=== PATIENT | female | born 1960 | race Caucasian/White ===

== ENCOUNTER 2016-08-21 06:58 | Outpatient (CLI) ==
[2013-09-29 16:21] VITALS: BMI 26.6
[2016-08-21 07:17] LABS: BASOPHILS # (AUTO) 0.1 K/uL (0-0.2); BASOPHILS % (AUTO) 0.7 % (0.0-3.0); EOSINOPHILS # (AUTO) 0.2 K/ul (0.0-0.7); EOSINOPHILS % (AUTO) 1.7 % (0.0-7.0); HEMATOCRIT 45.1 % (37.0-47.0); HEMOGLOBIN 15.1 g/dl (12.0-16.0); IMMATURE GRANULOCYTE % (AUTO) 0.3 % (0.0-5.0); LYMPHOCYTES # (AUTO) 2.9 K/uL (0.60-3.4); LYMPHOCYTES % (AUTO) 28.4 (10.0-50.0); MEAN CORPUSCULAR HEMOGLOBIN 29.1 pg (27.0-31.0); MEAN CORPUSCULAR HGB CONC 33.5 (31.8-35.4); MEAN CORPUSCULAR VOLUME 86.9 fl (81.0-99.0); MONOCYTES # (AUTO) 0.7 K/uL (0.4-2.0); NEUTROPHILS # (AUTO) 6.4 K/ul (2.0-6.9); NEUTROPHILS % (AUTO) 61.9; PLATELET COUNT 364 10^3/uL (140-440); RED BLOOD COUNT 5.19 10^6/ul (4.20-5.40); WHITE BLOOD COUNT 10.36 K/ul (4.6-10.2)
[2016-08-21 08:10] LABS: ALBUMIN 3.8 g/dL (3.4-5.0); ALBUMIN/GLOBULIN RATIO 1.03; ANION GAP 14.2; BILIRUBIN,TOTAL 0.41 mg/dL (0.00-1.20); BUN/CREATININE RATIO 8.69; CALCIUM 9.4 mg/dL (8.2-10.2); CHOL/HDL RATIO 4.5 (4.5-5.5); CREATININE 0.92 mg/dL (0.60-1.30); POTASSIUM 4.2 mmol/L (3.5-5.10); TOTAL PROTEIN 7.5 g/dL (6.4-8.2)
--- NOTE | 2016-08-21 08:12 | DI ---
EXAM: CHEST FRONTAL AND LATERAL VIEWS HISTORY: Tobacco use. COMPARISON: 09/29/2013 FINDINGS: Heart size is normal. There is diffuse, chronic appearing interstitial accentuation. Bertha gs are hyperinflated and there is relative lucency of the lung zones suggesting emphysema. Scattere d pulmonary opacities appear grossly stable since prior study possibly postinflammatory in nature. No acute infiltrates, vascular congestion or pleural fluid. IMPRESSION: Findings which can be consistent with chronic obstructive pulmonary disease. Correlate clinically. No definite suspicious opacities identified radiographically.]
== END 2016-08-21 06:59 | disposition home or self-care (01) ==
LOC: LAB 06:58
PROVIDERS: ATTEND Nurse Practitioner Family
DX: Z00.00 Encounter for general adult medical examination without abnormal findings (principal); Z72.0 Tobacco use; F41.9 Anxiety disorder, unspecified
CPT/HCPCS: 36415; 80053; 80061; 84443; 85025

== ENCOUNTER 2016-09-05 07:10 | Outpatient (CLI) ==
[2013-09-29 16:21] VITALS: BMI 26.6
--- NOTE | 2016-09-05 08:13 | CT ---
EXAM: CT neck with contrast HISTORY: Nonspecific lymphadenitis, knot left ear COMPARISON: None TECHNIQUE: CT neck performed with intravenous contrast. Coronal and sagittal reformatted images ob tained. FINDINGS: Mastoid air cells clear. Paranasal sinuses clear. No acute abnormalities of the bones. Mild atherosclerosis. A radiopaque marker was placed in the region of clinical concern, over the le ft parotid gland. In this region, in the posterior aspect of the parotid gland, there is a 0.7 cm n odule that is favored to represent a lymph node. Small scattered additional parotid lymph nodes not ed bilaterally. Right parotid gland unremarkable. Submandibular glands appear normal. Globes and retrobulbar structures normal. Evaluation of the aerodigestive tract demonstrates no exophytic mass lesion or area of focal mass effect. Epiglottis appears normal. Tonsils and adenoids not enlarged . Prevertebral soft tissues appear normal. Thyroid appears normal. Calcified superior mediastinal lymph nodes, consistent with old granulomatous disease. No lymphadenopathy identified in the neck. IMPRESSION: 1. 0.7 cm nodule left parotid gland corresponds to the region of clinical concern. This is indeter minate, though probably represents a lymph node. Recommend correlation with ultrasound. 2. Mild to moderate centrilobular emphysema in the lung apices
== END 2016-09-05 07:11 | disposition home or self-care (01) ==
LOC: RAD 07:10
PROVIDERS: ATTEND Nurse Practitioner Family
DX: I88.9 Nonspecific lymphadenitis, unspecified (principal); Z72.0 Tobacco use

== ENCOUNTER 2016-11-21 11:42 | Outpatient (CLI) ==
[2013-09-29 16:21] VITALS: BMI 26.6
== END 2016-11-21 11:43 | disposition home or self-care (01) ==
LOC: LAB 11:42
PROVIDERS: ATTEND Nurse Practitioner Family
DX: J02.9 Acute pharyngitis, unspecified (principal)
CPT/HCPCS: 87651; 87880

== ENCOUNTER 2017-10-21 15:46 | Outpatient (CLI) ==
[2013-09-29 16:21] VITALS: BMI 26.6
== END 2017-10-21 15:47 | disposition home or self-care (01) ==
LOC: RHC-LAB 15:46
PROVIDERS: ATTEND Nurse Practitioner Family
DX: Z00.00 Encounter for general adult medical examination without abnormal findings (principal); Z72.0 Tobacco use; F32.9 Major depressive disorder, single episode, unspecified
CPT/HCPCS: 36415; 80053; 80061; 84443; 85025

== ENCOUNTER 2017-11-11 14:36 | Outpatient (CLI) ==
[2013-09-29 16:21] VITALS: BMI 26.6
== END 2017-11-11 14:37 | disposition home or self-care (01) ==
LOC: RHC-LAB 14:36
PROVIDERS: ATTEND Nurse Practitioner Family
DX: R31.9 Hematuria, unspecified (principal)
CPT/HCPCS: 81001; 87086